=== PATIENT | female | born 2000 | race Caucasian/White ===

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

== ENCOUNTER 2019-06-30 11:27 | Emergency (ER) | payer OTHER ==
[~2019-06-30] VITALS: Ht 160 cm; Wt 89.3 kg
[~2019-06-30 11:27] MED LIST changes: +CIPR7.5D RIGHT EAR; -CIPR7.5D4 RIGHT EAR; +FAMO-96 PO; +IBUP-1544 PO; -IBUP800T25 PO; +ONDA4TAB14 PO
[2019-06-30 11:33] VITALS: BP 116/59; PULSE 79; RESP 18; Ht 160 cm; Wt 89.3 kg
--- NOTE | 2019-06-30 12:01 | ERD ---
ER Documentation Chief Complaint Chief Complaint vag spotting , onset today , 16 weeks preg HPI The patient is a 19-year-old female, presenting with acute vaginal spotting that began today, denies fever, chills, syncope, near syncope, neck pain, chest pain, dyspnea, abdominal pain, vomiting, dizzy, diarrhea. She is 2 para 1, LMP unknown because she is irregular Past medical history: None Past surgical history: ROS All systems reviewed and are negative except as per history of present illness. Medications Home Meds Active Scripts Ondansetron (Ondansetron Odt) 4 Mg Tab.rapdis, 4 MG PO Q6H PRN for NAUSEA AND/OR VOMITING, #10 TAB Prov:TOREY HYMAN PA-C 09/27/17 Famotidine* (Pepcid*) 20 Mg Tablet, 20 MG PO BID for 30 Days, TAB Prov:TOREY HYMAN PA-C 09/27/17 Amoxicillin* (Amoxicillin*) 500 Mg Cap, 500 MG PO TID for 7 Days, CAP Prov:PEYTON ALBERT MD 06/27/16 Ciprofloxacin Hcl/Dexameth (Ciprodex Otic Suspension) 7.5 Ml Drops.susp, 4 DROP RIGHT EAR QID for 7 Days, EA Prov:PEYTON ALBERT MD 06/27/16 Ibuprofen* (Motrin*) 600 Mg Tab, 600 MG PO Q6, #30 TAB Prov:TORITO LYNN PA-C 06/25/16 Neomycin/Polymyxin/Hydrocort* (Cortisporin* Otic) 10 Ml Susp, 4 DROP RIGHT EAR QID for 7 Days, EA Prov:TORITO LYNN PA-C 06/25/16 Ibuprofen* (Ibuprofen*) 800 Mg Tablet, 800 MG PO Q8 for 30 Days, #60 TAB 1 Refill Prov:YENI STEINBERG MD 05/23/16 Acetaminophen-Codeine* (Acetaminophen-Cod #3*) 300-30 Mg Tab, 2 TAB PO Q4H PRN for PAIN LEVEL 7-10 for 30 Days, #60 TAB 0 Refills Prov:YENI STEINBERG MD 05/23/16 Reported Medications Multivit/Min/Fol Ac/Iron/Pren* ( S*) 1 Tab Tab, 1 TAB PO DAILY, TAB 05/20/16 Allergies Allergies: Coded Allergies: No Known Allergy (Unverified , 06/30/19) PMhx/Soc History of Surgery: Yes () Anesthesia Reaction: No Hx Neurological Disorder: No Hx Respiratory Disorders: No Hx Cardiac Disorders: No Hx Psychiatric Problems: No Hx Miscellaneous Medical Probl: No (Para 2, gradivida 1 full term ) Hx Alcohol Use: No Hx Substance Use: No Hx Tobacco Use: No Smoking Status: Never smoker Physical Exam Vitals Vital Signs Date Temp Pulse Resp B/P (MAP) Pulse Ox O2 O2 Flow FiO2 Time Delivery Rate 06/30/19 98.1 79 18 116/59 99 11:33 (78) Physical Exam Const: No acute distress. Head: Atraumatic. Eyes: Normal Conjunctiva. ENT: Normal External Ears, Nose and Mouth. Neck: Full range of motion. No meningismus. Resp: Clear to auscultation bilaterally. Cardio: Regular rate and rhythm. Abd: Soft, non distended, normal bowel sounds, non tender. Skin: No petechiae or rashes. Back: No midline or flank tenderness. Ext: No cyanosis, or edema. Neur: Awake and alert. No focal deficit Psych: Normal Mood and Affect. Result Diagram: 06/30/19 1217 Results 24 hrs Laboratory Tests Test 06/30/19 12:08 06/30/19 12:13 06/30/19 12:15 06/30/19 12:17 Urine Color YELLOW Urine Clarity CLOUDY Urine pH 7.0 Urine Specific 1.016 [place] Urine Ketones 1+ mg/dL Urine Nitrite NEGATIVE mg/dL Urine Bilirubin NEGATIVE mg/dL Urine NEGATIVE mg/dL Urobilinogen Urine Leukocyte NEGATIVE Gary/ul Esterase Urine 1 /HPF Microscopic RBC Urine 6 /HPF Microscopic WBC Urine Squamous FEW /HPF Epithelial Cells Urine Amorphous FEW /HPF Crystals Urine Bacteria FEW /HPF Urine Mucus FEW /HPF Urine Hemoglobin 3+ mg/dL Urine Glucose NEGATIVE mg/dL Urine Total NEGATIVE mg/dl Protein POC Beta HCG, POSITIVE Qualitative Bedside Urine pH 7.5 (LAB) Bedside Urine Trace Protein (LAB) Bedside Urine Negative Glucose (UA) Bedside Urine 1+ Ketones (LAB) Bedside Urine 3+ Blood Bedside Urine Negative Nitrite (LAB) Bedside Urine Negative Leukocyte Estera se (L White Blood 8.5 10^3/ul Count Red Blood Count 4.42 10^6/ul Hemoglobin 13.1 g/dl Hematocrit 39.3 % Mean Corpuscular 88.9 fl Volume Mean Corpuscular 29.6 pg Hemoglobin Mean Corpuscular 33.3 g/dl Hemoglobin Sivan nt Red Cell 13.1 % Distribution Width Platelet Count 235 10^3/UL Mean Platelet 10.4 fl Volume Immature 0.200 % Granulocytes % Neutrophils % 71.4 % Lymphocytes % 20.3 % Monocytes % 6.3 % Eosinophils % 1.3 % Basophils % 0.5 % Nucleated Red 0.0 /100WBC Blood Cells % Immature 0.020 10^3/ul Granulocytes # Neutrophils # 6.1 10^3/ul Lymphocytes # 1.7 10^3/ul Monocytes # 0.5 10^3/ul Eosinophils # 0.1 10^3/ul Basophils # 0.0 10^3/ul Nucleated Red 0.0 10^3/ul Blood Cells # Beta HCG, 53115.0 mIU/ml Quantitative Procedures/[place] [id number] Radiology Main Line: [phone] DIAGNOSTIC IMAGING REPORT Patient: KAREN CAVAZOS : 2000 Age: 19 Sex: F MR #: [id number] DOS: 06/30/19 1207 Ordering MD: PETER BENDER MD Location: [facility] Room/Bed: PROCEDURE: US OB. CLINICAL INDICATION: Size and dates TECHNIQUE: Multiple sonographic images of the pelvis and gravid uterus were obtained. The images were reviewed on a PACS workstation. COMPARISON: 06/02/2019 FINDINGS: There is a single viable intrauterine gestation. There is a vertex presentation. The placenta is posterior. There is no evidence for an abruption or placenta previa. Measurements were made in order to determine age. The results are as follows: BPD = 3.33 cm HC = 11.89 cm AC = 10.59 cm FL = 2.11 cm EFW = 153 g (22%ile) HR= 138 bpm Maximum vertical pocket = 2.7 cm IMPRESSION: Single viable with gestational age of approximately 16 weeks 2 days based on ultrasound measurements. The estimated date of delivery is 12/13/2019. RPTAT: PP Chad Yeh Physician Date Time Electronically viewed and signed by Chad Yeh Physician on 06/30/2019 12:40 ME/ CC: PETER BENDER MD [phone] MEDICAL MAKING DECISION: The patient is a 19-year-old female, presenting with acute sudden , is stable for outpatient follow-up The differential diagnoses considered include but are not limited to threatened/incomplete/inevitable/complete , ectopic , non- related bleeding. Departure Diagnosis: Primary Impression: Threatened Condition: Good Comments I discussed the findings with the patient. I advised the patient to follow-up with the rn transitional physician in about 1-2 days, sooner if needed and return if any concern. Disclaimer: Inadvertent spelling and grammatical errors are likely due to EHR/dictation software use and do not reflect on the overall quality of patient care. Also, please note that the electronic time recorded on this note does not necessarily reflect the actual time of the patient encounter. PETER BENDER MD Jun 30, 2019 12:01
== END 2019-06-30 13:43 | disposition home or self-care (01) ==
LOC: FTE 11:27
DX: O20.0 Threatened abortion (principal); Z3A.16 16 weeks gestation of pregnancy
CPT/HCPCS: 76805; 81001; 81025; 84702; 85025; 86900; 86901; Z7502; 81003